=== PATIENT | female | born 1985 | race Caucasian/White ===

== ENCOUNTER 2018-05-14 19:19 | Inpatient (IN) | payer OTHER ==
[2018-05-14] MEDS ORDERED: Lidocaine 1%* 5 ML VIAL ONE (19:28)
[2018-05-14] MEDS ORDERED: Lactated Ringers 1000 ML Bag* 1,000 ML IV ONE ×2 (19:36→20:32)
[2018-05-14] MEDS ORDERED: Buffered Lidocaine 1% SYRIN* 1 ML/SYRINGE INTRADERM ONE (19:36)
--- NOTE | 2018-05-14 19:49 | HP ---
General Information - Reason for Visit 32 yo with srom on . labor for the last 3 days brought in at 9 cm by cnm planning home . cnm notes [place] posterioir or asyncltic - General Information Maternal Age: 32 Grav: 1 Para: 0 Estimated Due Date: 05/07/18 Determined By: LMP Maternal Blood Type and Rh: O Positive - Results this Serology/RPR Result: Non-Reactive Rubella Result: Immune HBsAg Result: Negative HIV Result: Negative GBS Culture Result: Negative Past Medical History Pertinent Past Medical History: Non-Contributory Pertinent Past Surgical History: None Pertinent Family History: Non-Contributory - Antepartal Records Antepartal Records: Reviewed, Uncomplicated Review of Systems Constitutional: Comfortable CV Complaint: No Respiratory: Shortness of Breath: No Genitourinary: Leaking Fluid Musculoskeletal: Contractions Neurological: No Headache Movement: Normal Exam - Exam Extremities: No Edema Heart: Normal Rhythm/Heart Sounds HEENT: No Significant Findings Lungs: Clear Bilaterally Reflexes: DTR 2+ Targeted Exam Findings Cervical Exam: 9cm Effacement: 90% Station: 0 Presenting Part: Vertex Membrane Status: Leaking Amniotic Fluid Evaluation: Gross Rupture EFM Findings - External Monitor Findings Baseline Heart Rate: 145 External Monitor Findings: Variability Moderate Contractions: Regular, Mild, 45-90 Seconds Assessment/Plan - Assessment prolonged activew phase - Plan Plan: IV Hydration - pt wouild like epidural and augmentatin/ fhr category 1 and , Admit - Anticipate Vaginal Delivery
[2018-05-14 19:51] LABS: Hematocrit 36 % (35-47); Hemoglobin 12.2 g/dl (12.0-16.0); Mean Corpuscular HGB Conc 34 g/dl (31-36); Mean Corpuscular Hemoglobin 31 pg (27-31); Mean Corpuscular Volume 90 fL (80-97); Mean Platelet Volume 9.9 fL (7.4-10.4); Platelet Count 189 10^3/ul (150-450); Red Blood Count 3.98 10^6/ul (4.00-5.40); Red Cell Distribution Width 15 % (10.5-15); White Blood Count 26.4 10^3/ul (3.5-10.8)
[2018-05-14] MEDS ORDERED: Bupivacaine 0.5% SDV PF* 30ML VIAL ONE (20:00)
[2018-05-14] MEDS ORDERED: Lactated Ringers 1000 ML Bag* 1,000 ML IV SCH ×2 (20:00→21:00)
[2018-05-14] MEDS ORDERED: OBEPIDURAL* 250 ML EPIDURAL ONE (20:06)
[2018-05-14 20:14] LABS: ABS Basophils 0.1 10^3/ul (0-0.2); ABS Eosinophils 0 10^3/ul (0-0.6); ABS Lymphocytes 1.4 10^3/ul (1.0-4.8); ABS Monocytes 1.8 10^3/ul (0-0.8)
[2018-05-14 20:16] LABS: Immature Granulocytes 9 % (0-9); Lymphocytes % 4 %; Monocytes % 8 %; Neutrophil % 79 %
[2018-05-14 20:17] LABS: ABS Neutrophils 23.23 10^3/ul (1.5-7.7)
[2018-05-14] MEDS ORDERED: Sodium Citrate/Citric Acid* 15 ML UDC PO PRN (20:32)
[2018-05-14] MEDS ORDERED: Famotidine TAB* 20 MG PO PRN (20:32)
[2018-05-14] MEDS ORDERED: EPHEDrine (Pressors)* 50 MG/ML VIAL IV PUSH PRN (20:32)
[2018-05-14] MEDS: Phenylephrine IV* 40 MCG/ML 10 ML SYRINGE IV PUSH PRN ×2 (20:40→23:05)
[2018-05-14] MEDS ORDERED: OBEPIDURAL* 250 ML EPIDURAL SCH (21:00)
[2018-05-14] MEDS ORDERED: Oxytocin in LR* 20 UNITS/1,000 ML BAG IVPB SCH (21:00)
[2018-05-15] MEDS ORDERED: Dibucaine 1% 28.35 GM TUBE PR PRN (02:03)
[2018-05-15] MEDS ORDERED: Tetan/Diph/Pertus SYR(Tdap)* 0.5 ML SYR(BOOSTRIX) use SYR IM ONE (02:03)
[2018-05-15] MEDS ORDERED: Glycerin ADULT SUPP PR PRN (02:03)
[2018-05-15] MEDS ORDERED: Ibuprofen TAB* 600 MG PO PRN (02:03)
[2018-05-15] MEDS ORDERED: Witch Hazel PAD* JAR TOPICAL PRN (02:03)
[2018-05-15] MEDS ORDERED: Acetaminophen TAB* 325 MG PO PRN (02:03)
[2018-05-15] MEDS ORDERED: Oxytocin in LR* 20 UNITS/1,000 ML BAG IVPB SCH (03:00)
[2018-05-15] MEDS ORDERED: Lactated Ringers 1000 ML Bag* 1,000 ML IV SCH (03:00)
--- NOTE | 2018-05-15 03:24 | PROCNOTE ---
[facility] OB: Delivery Note - Delivery A Date of : 05/15/18 Time of : 01:39 Sex: Female Weight at : 8 lb 11 oz Score 1 Minute: 9 Score 5 Minutes: 9 Gestational Age in Weeks and Days at Delivery: 41 Weeks and 1 Days Delivery Method: Spontaneous Vaginal Labor: Spontaneous Amniotic Fluid: Clear Estimated Blood Loss: 300 Anesthesia/Analgesia: CEI for Labor Anesthesia Comment: Epidural/Spinal, by [place] Delivered By: Tam Willingham - Nursery Level of Nursery: Regular/Bedside - Perineum Perineal Injury: 2nd Degree Perineal Injury Comment: repair with 3-0 vicryl Perineal Repair: By Delivering Practioner - Events Delivery Events of Note: Pitocin During Labor, ROM > 24 Hours
[2018-05-15] MEDS: Docusate CAP* 100 MG PO SCH ×4 (08:24→21:13)
[2018-05-15] MEDS ORDERED: Simethicone TAB* 80 MG TAB.CHEW PO SCH (08:30)
[2018-05-16 07:57] VITALS: BP 97/59
[2018-05-16 08:05] LABS: Hematocrit 29 % (35-47); Hemoglobin 9.7 g/dl (12.0-16.0); Mean Corpuscular HGB Conc 34 g/dl (31-36); Mean Corpuscular Hemoglobin 30 pg (27-31); Mean Corpuscular Volume 90 fL (80-97); Mean Platelet Volume 9.5 fL (7.4-10.4); Platelet Count 174 10^3/ul (150-450); Red Blood Count 3.22 10^6/ul (4.00-5.40); Red Cell Distribution Width 15 % (10.5-15); White Blood Count 18.1 10^3/ul (3.5-10.8)
[2018-05-16] MEDS ORDERED: Ferrous Gluconate TAB* 324 MG TAB PO SCH (09:00)
[2018-05-16 09:18] LABS: ABS Basophils 0.1 10^3/ul (0-0.2); ABS Eosinophils 0.1 10^3/ul (0-0.6); ABS Lymphocytes 4.2 10^3/ul (1.0-4.8); ABS Monocytes 1.3 10^3/ul (0-0.8); ABS Neutrophils 12.4 10^3/ul (1.5-7.7); ABS Nucleated RBC 0 10^3/ul; Eosinophil % 0.8 %; Lymphocyte % 23.2 %; Nucleated Red Blood Cells % 0
== END 2018-05-16 18:30 | disposition home or self-care (01) | DRG 560 ==
LOC: MCHOBOUT 19:19 → MCHOB 19:42
PROVIDERS: ADMIT Obstetrics & Gynecology; ATTEND Obstetrics & Gynecology
PROC: 10E0XZZ Delivery of Products of Conception, External Approach (ICD-10-PCS; principal; 2018-05-15)
PROC: 0KQM0ZZ Repair Perineum Muscle, Open Approach (ICD-10-PCS; 2018-05-15)
DX: O48.0 Post-term pregnancy (principal); Z37.0 Single live birth; O70.0 First degree perineal laceration during delivery; Z3A.41 41 weeks gestation of pregnancy
CPT/HCPCS: 36415; 85025; 85060; 86850; 86900; 86901; A9270-GY